=== PATIENT | female | born 1935 | race Caucasian/White ===

== ENCOUNTER 2016-11-08 02:54 | Observation (INO) ==
--- NOTE | 2016-11-08 04:13 | Emergency Department Report ---
General Adult HPI - General Chief complaint: Shortness of Breath/Dyspnea Stated complaint: diff breathing Time Seen by Provider: 11/08/16 03:26 Source: patient, family, EMS Mode of arrival: EMS Limitations: no limitations - History of Present Illness HPI narrative: 81-year-old female presents to emergency department with a chief complaint of dyspnea. Patient noted onset of dyspnea at approximately 8:00 the evening before. Symptoms have been persistent in nature since onset. Patient denies any pain or discomfort other than a typical moderate dull generalized headache without radiation. No other complaints or associated symptoms. She does not note any exacerbating or remitting factors. She was at home when her symptoms began. Symptoms have been persistent in nature since onset. - Related Data Home Medications Medication Instructions Recorded Confirmed Atenolol 100 mg PO DAILY #0 02/03/15 11/08/16 Cholecalciferol (Vitamin D3) 2,000 unit PO DAILY #0 02/03/15 (Vitamin D3) Gabapentin 300 mg PO TID #0 02/03/15 11/08/16 Melatonin/Pyridoxine [Melatonin 5 5 mg PO HS #0 02/03/15 mg Tablet] Aspirin [Dom Chewable Aspirin] 81 mg PO DAILY #0 11/17/15 11/08/16 Hydrocodone/Acetaminophen 1 tab PO Q6H PRN #0 11/17/15 11/08/16 [Hydrocodon-Acetaminophn 10-325] Lubiprostone [Amitiza] 24 mcg PO BID #0 11/17/15 Mirabegron [Myrbetriq] 25 mg PO DAILY #0 11/17/15 11/08/16 Previous Rx's Medication Instructions Recorded Minocycline HCl [Minocin] 100 mg PO BID 7 Days 11/19/15 hydroCHLOROthiazide 1 cap PO WB 30 Days 11/19/15 [Hydrochlorothiazide] Allergies Allergy/AdvReac Type Severity Reaction Status Date / Time codeine Allergy Unknown Verified 11/08/16 05:49 Review of Systems Constitutional: Denies: fever, chills Eyes: Denies: eye pain, vision change ENT: Denies: ear pain, throat pain Cardiovascular: Denies: chest pain, dyspnea on exertion Respiratory: Reports: dyspnea. Denies: cough Gastrointestinal: Denies: abdominal pain, nausea, vomiting, diarrhea Genitourinary: Denies: urgency, dysuria Musculoskeletal: Denies: back pain, arthralgia Integumentary: Denies: erythema, rash Neurological: Reports: headache (typical). 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 - Social History Smoking status: Never smoker Substance use type: does not use Alcohol intake frequency: does not drink Physical Exam - Limitations Limitations: no limitations - General General appearance: alert, in no apparent distress - Normal Exams: Head:: Normocephalic without trauma Eyes:: Pupils are PERRLA w/ EOMI, No scleral icterus, irritation, or foreign bodies noted ENMT:: No facial trauma, nasal exudates, pharyngeal erythema, or exudates are noted Dental: No fractured, loose, or missing teeth noted Neck:: Full range of motion Chest/Respirations:: Clear all kim, with good airflow, and symmetry bilaterally Cardiovascular:: Regular rate and rhythm, without murmur or gallop, Pulses 2+ all extremities, capillary refill, <2 seconds all extremities Abdomen:: Bowel sounds positive, soft, non-tender, non-distended, no hepatosplenomegaly, masses or bruits noted Lymphatic:: No lymphadenopathy, or lymphedema noted Musculoskeletal:: No tenderness, or deformity noted, good range of motion, all extremities Integumentary:: No rashes, hives, or bruising noted, hair and nails, without abnormality Course Vital Signs Temperature 98.5 F 11/08/16 02:54 Pulse Rate 64 11/08/16 02:54 Respiratory Rate 18 11/08/16 02:54 Blood Pressure 210/95 H 11/08/16 02:54 Pulse Oximetry 92 11/08/16 02:54 Temperature 96.8 F 11/08/16 16:00 Pulse Rate 73 11/08/16 16:00 Respiratory Rate 17 11/08/16 16:00 Blood Pressure 131/67 11/08/16 16:00 Pulse Oximetry 94 11/08/16 16:00 Medical Decision Making - MDM Narrative Medical decision making narrative: Labs / Imaging were discussed in detail with the patient and questions are answered. Patient is in agreement with the current plan of management. She is given analgesic pain medication with improvement of symptoms in the emergency Department. Patient is discussed with Joanne Marie who is Dr. Mary's nurse practitioner who recommends admission to their service. She is given aspirin 324 milligrams by mouth times one. She is given Lasix 40 mg IV times one. She is admitted to the service of Dr. Mary in improved condition. No further orders from accepting physician who is in agreement with the current plan of management. - Differential Diagnosis DHF, COPD, pneumonia, UTI - Lab Data Result diagrams: 11/08/16 03:10 11/08/16 03:10 Lab Results 11/08/16 11/08/16 11/08/16 Range/Units 03:10 03:10 03:10 WBC 7.0 (4.5-11.0) T/MM3 RBC 3.97 L (4.00-5.20) M/MM3 Hgb 12.1 (12-16) GM/DL Hct 37.4 (36-46) % MCV 94.2 (80-100) UM3 MCH 30.5 (26-34) UUG MCHC 32.4 (31-37) GM/DL RDW Std Deviation 43.7 (36.9-50.2) FL Plt Count 201 (130-400) T/MM3 MPV 11.6 (9.4-12.4) UM3 Immature Gran % (Auto) 0.4 (0.0-0.5) % Neut % (Auto) 69.1 H (33-66) % Lymph % (Auto) 22.7 L (23-45) % [place] % (Auto) 6.4 (0-9.0) % Eos % (Auto) 1.1 (0-4) % Baso % (Auto) 0.3 (0-2) % Neut # 4.8 (1.8-7.7) T/MM3 Lymph # 1.6 (1-4.8) T/MM3 [place] # 0.5 (0-0.8) T/MM3 Eos # 0.1 (0-0.5) T/MM3 Baso # 0.0 (0-0.2) T/MM3 Abs Immat Gran (auto) 0.03 (0.00-0.03) T/MM3 Turbidity < 20 (0-20) Sodium 145 H (134-144) MEQ/L Potassium 4.8 (3.6-5) MEQ/L Chloride 107 (98-107) MEQ/L Carbon Dioxide 27 (22-30) MEQ/L Anion Gap 11 (5-15) MEQ/L BUN 20.0 H (7-17) MG/DL Creatinine 1.1 (0.7-1.2) MG/DL GFR Calculation 47 BUN/Creatinine Ratio 18 (6-26) RATIO Glucose 103 (65-110) MG/DL Calculated Osmolality 282 H (261-280) MOSM/KG Calcium 9.3 (8.4-10.2) MG/DL Total Bilirubin 0.80 (0.20-1.30) MG/DL Icterus Index < 2 (0-7) AST 24 (14-36) U/L ALT 22 (9-52) U/L Alkaline Phosphatase 68 (38-126) U/L Troponin I < 0.012 (0-0.12) ng/ml B-Natriuretic Peptide (0-175) pg/mL Total Protein 7.3 (6.3-8.2) G/DL Albumin 4.4 (3.5-5.0) G/DL Globulin 2.9 (2.4-3.6) G/DL Albumin/Globulin Ratio 1.5 (1.1-2.2) RATIO Lipase (23-300) U/L Specimen Hemolysis < 15 (0-25) Ur Collection Type Urine, clean catch Urine Color Yellow (YELLOW) Urine Clarity Clear Urine pH 5.5 (5.0-8.0) Ur Specific [place] <=1.005 L (1.015-1.025) Urine Protein Negative (NEGATIVE) Urine Glucose (UA) Negative (NEGATIVE) Urine Ketones Negative (NEGATIVE) Urine Occult Blood Negative (NEGATIVE) Urine Nitrate Negative (NEGATIVE) Urine Bilirubin Negative (NEGATIVE) Urine Urobilinogen 0.2 (NORMAL) EU/DL Ur Leukocyte Esterase Negative (NEGATIVE) Urinalysis Comment Microscopic not ind. 11/08/16 Range/Units 03:10 WBC (4.5-11.0) T/MM3 RBC (4.00-5.20) M/MM3 Hgb (12-16) GM/DL Hct (36-46) % MCV (80-100) UM3 MCH (26-34) UUG MCHC (31-37) GM/DL RDW Std Deviation (36.9-50.2) FL Plt Count (130-400) T/MM3 MPV (9.4-12.4) UM3 Immature Gran % (Auto) (0.0-0.5) % Neut % (Auto) (33-66) % Lymph % (Auto) (23-45) % [place] % (Auto) (0-9.0) % Eos % (Auto) (0-4) % Baso % (Auto) (0-2) % Neut # (1.8-7.7) T/MM3 Lymph # (1-4.8) T/MM3 [place] # (0-0.8) T/MM3 Eos # (0-0.5) T/MM3 Baso # (0-0.2) T/MM3 Abs Immat Gran (auto) (0.00-0.03) T/MM3 Turbidity (0-20) Sodium (134-144) MEQ/L Potassium (3.6-5) MEQ/L Chloride (98-107) MEQ/L Carbon Dioxide (22-30) MEQ/L Anion Gap (5-15) MEQ/L BUN (7-17) MG/DL Creatinine (0.7-1.2) MG/DL GFR Calculation BUN/Creatinine Ratio (6-26) RATIO Glucose (65-110) MG/DL Calculated Osmolality (261-280) MOSM/KG Calcium (8.4-10.2) MG/DL Total Bilirubin (0.20-1.30) MG/DL Icterus Index (0-7) AST (14-36) U/L ALT (9-52) U/L Alkaline Phosphatase (38-126) U/L Troponin I (0-0.12) ng/ml B-Natriuretic Peptide 2750 H (0-175) pg/mL Total Protein (6.3-8.2) G/DL Albumin (3.5-5.0) G/DL Globulin (2.4-3.6) G/DL Albumin/Globulin Ratio (1.1-2.2) RATIO Lipase 88 (23-300) U/L Specimen Hemolysis (0-25) Ur Collection Type Urine Color (YELLOW) Urine Clarity Urine pH (5.0-8.0) Ur Specific [place] (1.015-1.025) Urine Protein (NEGATIVE) Urine Glucose (UA) (NEGATIVE) Urine Ketones (NEGATIVE) Urine Occult Blood (NEGATIVE) Urine Nitrate (NEGATIVE) Urine Bilirubin (NEGATIVE) Urine Urobilinogen (NORMAL) EU/DL Ur Leukocyte Esterase (NEGATIVE) Urinalysis Comment - Radiology Data CT head: Negative. Chest x-ray: Mild pulmonary edema. Otherwise negative. - EKG Data EKG #1 EKG results narrative: Sinus rhythm. 63 beats per minute. No STEMI. Disposition Disposition: To [facility] Condition: Stable Time of Disposition: 06:00 (Admit. Dr. Mary. ) - Seen By: physician
[2016-11-08] MEDS ORDERED: HYDROCODONE/APAP 5mg/325mg TABLET PO ONE (05:15)
[2016-11-08] MEDS ORDERED: ASPIRIN 81 MG CHEWABLE TABLET PO ONE (06:20)
[2016-11-08] MEDS ORDERED: FUROSEMIDE 40 MG/4 ML INJECTION IVP ONE (06:20)
[2016-11-08] MEDS: SALINE FLUSH 10ml SYRINGE IVF PRN ×3 (06:34→23:32)
--- NOTE | 2016-11-08 07:55 | CT Scan Report ---
Indication: HOANG PROCEDURE: CT head/brain wo con: Encounter: Initial Comparison: November 17, 2015 Technique: Axial CT images through the head were performed without contrast. Iterative Reconstruction dose reducing technique was utilized. FINDINGS: Mild generalized atrophy. The ventricles are of normal size, shape, and contour for the patient's age. There are scattered areas of low attenuation in the white matter which most likely represent changes from chronic microvascular ischemia. The brainstem, cerebellum, and cerebral hemispheres otherwise have a normal morphology and CT attenuation. There is no evidence of midline displacement. No hemorrhage, signs of acute territorial stroke, mass effect, mass lesions, or edema is evident. The visualized portions of the skull base, midface, and calvarium demonstrate no abnormality. The paranasal sinuses are well aerated and free of significant disease. The tympanic and mastoid cavities appear normal. IMPRESSION: No acute intracranial abnormality or hemorrhage. There is a preliminary report by [facility]. .
--- NOTE | 2016-11-08 07:56 | XRay Report ---
Indication: sob PROCEDURE: XR chest 1V: Encounter: Initial Comparison: November 19, 2015 Findings: The lungs are stable in appearance without new focal airspace consolidation. There is no pleural effusion or pneumothorax. The heart size, pulmonary vascularity and mediastinal contours are unchanged. Left pacemaker. Cervical spine hardware. IMPRESSION: Stable appearance of the chest without acute cardiopulmonary disease. .
--- NOTE | 2016-11-08 11:58 | History & Physical Report ---
<SimFunmilayo A - Last Filed: 11/08/16 13:15> History of Present Illness Date: 11/08/16 Chief complaint: Chest pain, shortness of breath HPI: Doreen Gregorio is a pleasant 81-year-old female who complains of chest pain and shortness of breath. She reports that last night, 11/07/16, around 8pm she laid down to go to bed and started to have central, substernal chest pain and shortness of breath. She denies any prior symptoms and states that she felt fine all day and evening. She states that her chest pain radiated to her mid back and up into her head causing a right sided headache. She admits to having similar pain before and reportedly underwent cardiac evaluation and pacemaker interrogation which she states was normal. She has had similar pain which occurs when eating meat and drinking cold drinks, feeling like something is "stuck" in her chest. She admitted to feeling very anxious and clammy with her chest pain and shortness of breath but denies any recent illnesses, fevers, chills, nausea or vomiting. Occasionally when standing up from laying down or sitting position, she will feel lightheaded and admits to recently falling after standing up from the toilet about 3 weeks ago, resulting in a bruise on her right cheek. She also states that she did have a brief 2-3 second loss of her vision while signing papers which returned spontaneously. She denies any facial droop, slurring of words, confusion or weakness. Additional complaint includes dysuria and polyuria with frequency and urgency for the past few days. She has a history of frequent UTIs. Her granddaughter persuaded her to come to the ED around 1am for evaluation. Upon arrival to the ED, vital signs revealed hypertension 177/79, heart rate 63, respiratory rate 20, 92% on room air and temp 98.3. In light of her symptoms, labs were obtained. CBC was unremarkable with WBC 7.0, hemoglobin 12.1, platelets 201. BMP revealed hypernatremia with sodium 145, potassium 4.8, BUN 20, SCr 1.1 and glucose 103. Troponin was negative at <0.012. Lipase, AST and ALT were within normal ranges. BNP was 2750. UA was negative. CT head was obtained in light of her headache and brief loss of vision and showed no acute intracranial abnormality or hemorrhages. CXR revealed no acute cardiopulmonary abnormality. While in the ED she received Lasix 40mg IV, ASA and norco. Due to her chest pain and shortness of breath, she was subsequently admitted to Dr. Mary. Admission was later changed to Dr. Singh and the hospitalist team. Her length of stay is not expected to exceed more than 2 over nights. She has a long history of hypertension. She denies a history of diabetes. On exam, she is seen while finishing her lunch and complains of chest pain and shortness of breath. She is in no apparent distress and is breathing easily on room air. She points to her mid-lower sternal region and epigastric region with regard to location of pain. Cardiac exam reveals regular rate and rhythm and lungs reveal bibasilar crackles without wheezing or crackles. Abdomen is obese, soft, nontender with active bowel sounds. By history, patient reports left sided abdominal hernia which is not noted on exam. No edema to lower extremities and 2+ pedal pulses bilaterally. Review of Systems - Constitutional Constitutional: Present: headache(s). Absent: chills, fever(s), night sweats, weakness - EENMT Eyes: Present: diplopia (corrected with glasses), loss of vision (brief 2-3 seconds prior to arrival), requires corrective lenses. Absent: change in vision , pain, photophobia Balance: Absent: vertigo, falling to one side Nose: Absent: nosebleeds, allergies Mouth/Throat: Absent: sore throat, changes in swallowing, painful swallowing - Cardiovascular Cardiovascular: Present: chest pain, dyspnea on exertion, orthopnea. Absent: palpitations, syncope, edema, cyanosis Vascular: Absent: pallor of an extermity, pedal edema, unilateral swelling - Respiratory Respiratory: Present: dyspnea, dyspnea on exertion. Absent: cough, hemoptysis, wheezing, pain on inspiration, chest congestion, excessive phlegm production - Gastrointestinal Gastrointestinal: Present: constipation, dyspepsia. Absent: abdominal pain, change in bowel habits, change in stool character, coffee ground emesis, diarrhea, hematemesis, hematochezia, nausea, vomiting - Genitourinary Genitourinary: Present: dysuria, urinary frequency, urinary urgency. Absent: flank pain, hematuria - Musculoskeletal Musculoskeletal: Present: arthralgias (chronic), back pain (chronic), neck pain (chronic). Absent: deformity, joint swelling, muscle weakness - Integumentary/Breasts Integumentary: Absent: erythema, rash, wounds, jaundice - Neurological Neurological: Present: headache(s). Absent: abnormal speech, convulsions, dizziness, lack of coordination, memory loss, weakness - Psychiatric Psychiatric: Present: anxiety - Endocrine Endocrine: Present: polyuria. Absent: palpitations PFSH Medical History Updates: 1. Hypertension. 2. Hypercholesterolemia. 3. Chronic constipation. 4. History of GERD. 5. Renal insufficiency, chronic, stage III, GFR 47. 6. Recurrent UTI. 7. History of TIA. 8. Rheumatoid arthritis with chronic neck and back pain. 9. Morbid obesity, BMI 43. Surgical History: 1. Cataract extractions. 2. section x 4. 3. Hysterectomy. 4. Bilateral TKA. 5. Cervical neck fusion. 6. Excess skin removal from arms, legs and back. Family History Updates: Mother - , hypertension, diabetes. Father - , 60's, MVA. Brother - , diabetes, cirrhosis, hypertension. Brother - , CAD, [place]. Sister - , lung and liver cancer, hypertension. Son - , cirrhosis, Hep C. Daughter - alive, hypertension. Son - alive, healthy. - Social History Smoking status: Never smoker Substance use type: does not use Alcohol intake frequency: does not drink Housing: house (home health) Household members: none service: No Current occupational status: retired Does patient use chewing tobacco?: No Medications Home Medications Medication Instructions Recorded Confirmed Type Atenolol 100 mg PO DAILY #0 02/03/15 11/08/16 History Cholecalciferol (Vitamin D3) 2,000 unit PO DAILY #0 02/03/15 History (Vitamin D3) Gabapentin 300 mg PO TID #0 02/03/15 11/08/16 History Melatonin/Pyridoxine [Melatonin 5 5 mg PO HS #0 02/03/15 History mg Tablet] Aspirin [Dom Chewable Aspirin] 81 mg PO DAILY #0 11/17/15 11/08/16 History Hydrocodone/Acetaminophen 1 tab PO Q6H PRN #0 11/17/15 11/08/16 History [Hydrocodon-Acetaminophn 10-325] Lubiprostone [Amitiza] 24 mcg PO BID #0 11/17/15 History Mirabegron [Myrbetriq] 25 mg PO DAILY #0 11/17/15 11/08/16 History Allergies Allergy/AdvReac Type Severity Reaction Status Date / Time codeine Allergy Unknown Verified 11/08/16 05:49 Exam Vital Signs: Temp Pulse Resp BP Pulse Ox 97.2 F 60 16 165/73 H 93 11/08/16 07:00 11/08/16 07:00 11/08/16 07:00 11/08/16 07:00 11/08/16 07:00 Telemetry Rhythm: Sinus Rhythm Height: 4 ft 10 in Weight: 94.3 kg Body Mass Index: 43.4 - Constitutional Present: no acute distress, well nourished, well developed, morbidly obese, cooperative - Routine HEENT Exam Head: Present: normocephalic, hematoma (right cheek - old) Eye: Present: PERRL. Absent: conjunctival icterus, scleral injection, periorbital swelling ENT: Present: mucous membranes moist - Routine Neck Exam Present: supple, full ROM, tenderness (chronic posterior cervical), swelling, trachea midline - Routine Chest/Breast/Axilla Exam Chest wall: Absent: tenderness - Routine Respiratory Exam Present: decreased breath sounds. Absent: accessory muscle use - Detailed Respiratory Exam Present: rales. Absent: wheezes - Routine Cardiovascular Exam Present: RRR, S1, S2 - Routine Abdominal Exam Present: soft, normoactive bowel sounds, non distended, non tender. Absent: guarding - Routine Extremities Exam Present: no edema, non tender, full ROM, pulses intact (2+ bilateral pedal), normal capillary refill. Absent: cyanosis, calf tenderness - Routine Back/Spine/Pelvis Exam Back/Spine: Absent: CVA tenderness, erythema, warmth - Routine Skin Exam Present: intact, dry, warm, ecchymosis (right cheek and arm). Absent: cyanosis , erythema, lesions, jaundice - Routine Neurological Exam Present: alert, oriented X3, CN II-XII intact, moving all extremities, hearing grossly intact, normal speech. Absent: altered mental status - Routine Psychiatric Exam Present: normal affect, normal thought process, cooperative, anxious Results - Labs CBC & Chem 7: 11/08/16 03:10 11/08/16 03:10 Assessment and Plan (1) Chest pain of uncertain etiology Current visit: Yes Status: Acute (2) Hypertension Current visit: Yes Status: Chronic (3) Hypercholesterolemia Current visit: Yes Status: Chronic (4) GERD (gastroesophageal reflux disease) Current visit: Yes Status: Chronic (5) Chronic renal disease, stage 3, moderately decreased glomerular filtration rate (GFR) between 30-59 mL/min/1.73 square meter Current visit: Yes Status: Chronic (6) Rheumatoid arthritis Current visit: Yes Status: Chronic (7) Chronic pain Current visit: Yes Status: Chronic (8) Chronic constipation Current visit: Yes Status: Chronic (9) Morbid obesity with BMI of 40.0-44.9, adult Current visit: Yes Status: Chronic DVT Prophylaxis: SCD's GI Prophylaxis: Protonix Resuscitation Status: Full Code Assessment and Plan: . Chest pain of unknown etiology with shortness of breath: * Admit to observation status under the care of Dr. Singh. * Obtain serial troponins and monitor closely on telemetry. Troponin on admission was negative at <0.012. * Chest pain does not appear to be cardiac in nature. Patient reports pain is worse following eating, cold liquids and meat. May consider surgical consult for endoscopy evaluation for possible esophageal strictures and other sources of pain. * Patient given Lasix 40mg IV in ED. No edema on exam. Monitor daily weights and signs of fluid over load closely. BNP on admission was 2750. * CXR on admission showed no acute cardiopulmonary insufficiency. Encourage IS for pulmonary toileting. * Ativan as needed for anxiety which is potentially contributing to chest pain and shortness of breath. * Recheck BMP and CBC in AM to monitor blood counts, electrolytes and renal function. * Arteritis secondary to patient's RA should be considered in light of patient' s complaint of pain. CXR showed no acute cardiopulmonary abnormalities. . Hypernatremia, present on admission: * Sodium 145 on admission. Will recheck with repeat BMP in AM to monitor electrolytes and renal function . Hypertension, chronic: * Blood pressure elevated on admission. Continue to monitor closely. * Continue home medications including atenolol 100mg daily. Patient required Cozaar on previous admission to control blood pressure. . Hypercholesterolemia, chronic. * Encourage close monitoring as outpatient. No home medication taken. * Family history positive for CAD. May consider initiation of statin therapy. . GERD, chronic. * Initiate Prilosec 20mg daily for GERD and GI protection. * LFT and lipase within normal limits upon admission. . Chronic pain secondary to Rheumatoid arthritis. * Continue home medications including norco and gabapentin. * Patient denied need for additional pain control at time of admission. . Chronic constipation. * Most likely secondary to chronic opioid use. * Continue home amitiza for bowel motivation. . Renal insufficiency, stage III, GFR 47. * Monitor through evaluation of renal function and labs. Upon discharge, patient's care will be returned to her PCP. Sepsis Assessment - Evaluation Sepsis screening result: No Definite Risk - Focused Exam Vital Signs Temp Pulse Resp BP Pulse Ox 11/08/16 07:00 97.2 F 60 16 165/73 H 93 Hospital Course Summary Disclaimer: The visit summary below is not to be considered part of the above Progress Note. Hospital Course: 11/08/16 13:53 . Chest pain of unknown etiology with shortness of breath: * Admit to observation status under the care of Dr. Singh. * Obtain serial troponins and monitor closely on telemetry. Troponin on admission was negative at <0.012. * Chest pain does not appear to be cardiac in nature. Patient reports pain is worse following eating, cold liquids and meat. May consider surgical consult for endoscopy evaluation for possible esophageal strictures and other sources of pain. * Patient given Lasix 40mg IV in ED. No edema on exam. Monitor daily weights and signs of fluid over load closely. BNP on admission was 2750. * CXR on admission showed no acute cardiopulmonary insufficiency. Encourage IS for pulmonary toileting. * Ativan as needed for anxiety which is potentially contributing to chest pain and shortness of breath. * Recheck BMP and CBC in AM to monitor blood counts, electrolytes and renal function. * Arteritis secondary to patient's RA should be considered in light of patient' s complaint of pain. CXR showed no acute cardiopulmonary abnormalities. . Hypernatremia, present on admission: * Sodium 145 on admission. Will recheck with repeat BMP in AM to monitor electrolytes and renal function . Hypertension, chronic: * Blood pressure elevated on admission. Continue to monitor closely. * Continue home medications including atenolol 100mg daily. Patient required Cozaar on previous admission to control blood pressure. . Hypercholesterolemia, chronic. * Encourage close monitoring as outpatient. No home medication taken. * Family history positive for CAD. May consider initiation of statin therapy. . GERD, chronic. * Initiate Prilosec 20mg daily for GERD and GI protection. * LFT and lipase within normal limits upon admission. . Chronic pain secondary to Rheumatoid arthritis. * Continue home medications including norco and gabapentin. * Patient denied need for additional pain control at time of admission. . Chronic constipation. * Most likely secondary to chronic opioid use. * Continue home amitiza for bowel motivation. . Renal insufficiency, stage III, GFR 47. * Monitor through evaluation of renal function and labs. Upon discharge, patient's care will be returned to her PCP. <Hilda Singh - Last Filed: 11/08/16 19:21> History of Present Illness Date: 11/08/16 [facility] Patient Stated Medical History Transient Ischemic Attacks ( Yes TIA) Cataracts Yes Angina Yes Hypertension Yes Valvular Heart Disease Yes: MILD REGURG Gastroesophageal Reflux Yes Disease Other GI Yes: CHRONIC CONSTIPATION, MASS IN LUQ Hx Renal Disease Yes Hx Urinary Tract Infection Yes Osteoarthritis Yes: RA Other Musculoskeletal MULTIPLE FALLS W/SYNCOPE BEFORE PACEMAKER Blood Transfusions Yes Depression Yes Exam Vital Signs: Temp Pulse Resp BP Pulse Ox 96.8 F 73 17 131/67 94 11/08/16 16:00 11/08/16 16:00 11/08/16 16:00 11/08/16 16:00 11/08/16 16:00 Height: 1.47 m Weight: 93.7 kg Results - Labs CBC & Chem 7: 11/08/16 03:10 11/08/16 03:10 Assessment and Plan (1) Hypertension Current visit: Yes Status: Chronic (2) Hypercholesterolemia Current visit: Yes Status: Chronic (3) Chronic constipation Current visit: Yes Status: Chronic (4) GERD (gastroesophageal reflux disease) Current visit: Yes Status: Chronic (5) Chronic renal disease, stage 3, moderately decreased glomerular filtration rate (GFR) between 30-59 mL/min/1.73 square meter Current visit: Yes Status: Chronic (6) Rheumatoid arthritis Current visit: Yes Status: Chronic (7) Chronic pain Current visit: Yes Status: Chronic (8) Chest pain of uncertain etiology Current visit: Yes Status: Acute (9) Morbid obesity with BMI of 40.0-44.9, adult Current visit: Yes Status: Chronic (10) Dysphagia Current visit: Yes Status: Acute 11/08/16 18:57 History esophageal dilatation-2002 (11) Wide-complex tachycardia Current visit: Yes Status: Acute Assessment and Plan: I have independently evaluated and examined this patient. I reviewed the chart, the patient's history, and the PA's documented findings as above. We discussed and formulated the assessment and plan as above with additions as below: Mrs. Gregorio is an 81-year-old female with multiple chronic medical problems. 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 She is currently followed by Dr. Real in the [facility]. She was hospitalized overnight with chest pain and dyspnea after she developed chest pain after laying down yesterday evening around 8 PM. This was followed by onset of dyspnea when she began to get anxious and panicky. She has a history of esophageal stricture requiring dilatation about 15 years ago when she lived in [place] and said the symptoms she is having with chest pain or similar symptoms she experienced at that time and that she's having trouble swallowing especially with meats and vegetables but haven't been cooked well. It feels like food catches and sometimes she has to vomit when she develops pain with swallowing. She denies lower extremity edema. BNP was elevated in the emergency room and she was admitted for further assessment. On examination the patient is somewhat anxious but very cooperative and talkative. Respirations are nonlabored and breath sounds clear with good airflow. Cardiac rhythm is regular and without gallop. Abdomen is obese but soft, there is mild tenderness in the epigastrium and left upper quadrant. There is no lower extremity edema. X-rays been reviewed by myself-heart is enlarged lung kim are clear. EKGs also been reviewed by myself demonstrating sinus rhythm with wide complex complex, LAD, LAFB, poor R-wave progression, but no acute abnormalities. Labs notable only for elevated BNP without clinical correlate. Late this afternoon patient had a short run of wide complex tachycardia at which time she had palpitations when revisited but no chest pain. She reports that the symptoms lasted only briefly. By history I suspect presenting chest pain is largely esophageal in origin and may represent esophageal spasm or stricture. She describes some reflux and omeprazole will be increased to twice a day dosing. Dr. Real updated on symptoms and will coordinate outpatient evaluation of esophagus if symptoms are ongoing. Pacemaker to be interrogated. Cardiology consult if indicated based on interrogation results. Third troponin pending, magnesium added to labs given ectopy looked noted late this afternoon. Sepsis Assessment - Focused Exam Vital Signs Temp Pulse Resp BP Pulse Ox 11/08/16 16:00 96.8 F 73 17 131/67 94 11/08/16 15:51 22 98 11/08/16 07:00 97.2 F 60 16 165/73 H 93 Hospital Course Summary Disclaimer: The visit summary below is not to be considered part of the above Progress Note.
[2016-11-08] MEDS ORDERED: ONDANSETRON 4 MG/2 ML INJECTION IVP PRN (12:06)
[2016-11-08] MEDS ORDERED: OMEPRAZOLE 20 MG CAPSULE PO SCH (12:17)
[2016-11-08] MEDS: HYDROCODONE/APAP 10 MG/325 MG TABLET PO PRN ×2 (12:48→20:07)
[2016-11-08] MEDS: ATENOLOL 100 MG TABLET PO SCH (12:48)
[2016-11-08] MEDS: GABAPENTIN 300 MG CAPSULE PO SCH ×2 (14:22→21:02)
[2016-11-08] MEDS: LUBIPROSTONE 24 MCG CAPSULE PO SCH (21:02)
[2016-11-08] MEDS ORDERED: MELATONIN 5 MG TABLET PO SCH (22:00)
[2016-11-08] MEDS: MAGNESIUM SULFATE 1gm PREMIX 1 GM/100 ML BAG IV SCH ×2 (22:18→23:31)
[2016-11-08] MEDS: MINOCYCLINE 100 MG CAPSULE PO SCH (22:36)
[2016-11-08] MEDS ORDERED: NS FLUSH BAG 500ml IV PRN ×2 (22:59→23:37)
[2016-11-09] MEDS: MAGNESIUM SULFATE 1gm PREMIX 1 GM/100 ML BAG IV SCH ×2 (00:36→01:48)
[2016-11-09] MEDS: HYDROCODONE/APAP 10 MG/325 MG TABLET PO PRN ×2 (02:09→09:36)
[2016-11-09] MEDS ORDERED: OMEPRAZOLE 20 MG CAPSULE PO SCH (06:30)
[2016-11-09] MEDS ORDERED: MIRABEGRON 25mg TABLET PO SCH (09:00)
[2016-11-09] MEDS ORDERED: ASPIRIN 81 MG CHEWABLE TABLET PO SCH (09:00)
[2016-11-09] MEDS ORDERED: DULOXETINE 30 MG CAPSULE PO SCH (09:30)
[2016-11-09] MEDS: LUBIPROSTONE 24 MCG CAPSULE PO SCH (09:34)
[2016-11-09] MEDS: GABAPENTIN 300 MG CAPSULE PO SCH (09:36)
[2016-11-09] MEDS: MINOCYCLINE 100 MG CAPSULE PO SCH (09:36)
[2016-11-09] MEDS: ATENOLOL 100 MG TABLET PO SCH (09:36)
[2016-11-09] MEDS ORDERED: ACETAMINOPHEN 500 MG TABLET PO PRN (10:17)
[2016-11-09] MEDS ORDERED: HYDROCODONE/APAP 10 MG/325 MG TABLET PO PRN (10:18)
[2016-11-09] MEDS ORDERED: GABAPENTIN 300 MG CAPSULE PO SCH ×2 (13:00→22:00)
--- NOTE | 2016-11-09 15:21 | Discharge Summary ---
Discharge Plan - Med Rec/Dispo Referrals/Follow Up: Juan Francisco Real MD [Family Provider] - 1 Week [facility] Instructions: Gastroesophageal Reflux Disease (GEN), Esophageal Stricture (GEN) Prescriptions: New Cholecalciferol [Vitamin D-3] 1,000 unit PO DAILY Duloxetine [Cymbalta] 30 mg PO DAILY cap Gabapentin [Neurontin] 300 mg PO 0900,1300 cap Hydrocodone/APAP 10/325 [[place] 10/325] 1 tab PO 5XD PRN PRN Reason: P Lidocaine Patch Removal [Lidoderm Patch Removal] 1 removal TOP 2100 patch Magnesium Oxide [Magox] 800 mg PO DAILY #60 PEG 3350 17gm PACKET [Miralax] 0.5 packet PO DAILY #30 packet Simvastatin [Zocor] 10 mg PO HS Trospium [Sanctura] 20 mg PO BID #60 tablet Acetaminophen [Tylenol] 500 - 1,000 mg PO BID PRN PRN Reason: Discomfort Gabapentin [Neurontin] 600 mg PO HS cap Lidocaine 5% Patch [Lidoderm] 1 patch TOP DAILY patch Omeprazole [Prilosec] 20 mg PO ACBID #60 cap Propylene Glycol/Peg 400 [Systane 0.3-0.4% Eye Drops] 15 ml OP BID #2 drops Continue Atenolol 100 mg PO DAILY #0 Lubiprostone [Amitiza] 24 mcg PO BID #0 Aspirin [Dom Chewable Aspirin] 81 mg PO DAILY #0 Discontinued Mirabegron [Myrbetriq] 25 mg PO DAILY #0 Melatonin/Pyridoxine [Melatonin 5 mg Tablet] 5 mg PO HS #0 Cholecalciferol (Vitamin D3) (Vitamin D3) 2,000 unit PO DAILY #0 Gabapentin 300 mg PO TID #0 hydroCHLOROthiazide [Hydrochlorothiazide] 1 cap PO WB 30 Days No Action Hydrocodone/Acetaminophen [Hydrocodon-Acetaminophn 10-325] 1 tab PO Q6H PRN # 0 PRN Reason: PAIN - Disposition 01 Discharged Home, Self-Care
--- NOTE | 2016-11-09 15:45 | Echocardiogram ---
DATE OF PROCEDURE November 08, 2016 This is a two-dimensional echo with spectral Doppler, color-flow and M-mode. It was obtained in a patient with shortness of breath. This is a technically difficult study. Left atrium is dilated. Left ventricle end-diastolic dimension is increased. Left ventricular wall thickness at the upper limits of normal. LV systolic function is normal with ejection fraction of 55%. Right atrium is normal. Right ventricle is normal. Aortic root dimension is normal. Pacemaker is present in right heart. Mitral annulus is calcified. Mitral valve leaflets are normal with mild mitral regurgitation. Aortic valve appears to be normal, however, it was not visualized well. Tricuspid valve shows mild tricuspid regurgitation with estimated pulmonary artery systolic pressure of 33. Pulmonary valve shows mild pulmonary insufficiency. There is no pericardial effusion. IMPRESSION 1. Technically difficult study. 2. Normal LV systolic function with ejection fraction of 55%. 3. Left atrial dilation. 4. Left ventricular dilation. 5. Mitral annulus calcification with mild mitral regurgitation. 6. Mild tricuspid regurgitation with estimated pulmonary artery systolic pressure of 33. 7. Mild pulmonary insufficiency. 8. Pacemaker leads present in right heart. MTDD
--- NOTE | 2016-11-09 20:47 | Discharge Summary ---
Discharge Information Date of admission: 11/08/16 06:58 Anticipated date of discharge: 11/09/16 Attending Physician: Hilda Singh MD Primary care physician: Juan Francisco Reynolds MD Consults: - Discharge Diagnosis (1) Chest pain of uncertain etiology Status: Acute (2) Dysphagia Qualifiers: Dysphagia type: esophageal phase Qualified Code(s): R13.14 - Dysphagia, pharyngoesophageal phase Status: Acute (3) GERD (gastroesophageal reflux disease) Qualifiers: Esophagitis presence: esophagitis presence not specified Qualified Code(s) : K21.9 - Gastro-esophageal reflux disease without esophagitis Status: Chronic (4) Hypertension Qualifiers: Hypertension type: essential hypertension Qualified Code(s): I10 - Essential (primary) hypertension Status: Chronic (5) Hypercholesterolemia Status: Chronic (6) Chronic constipation Status: Chronic (7) Chronic renal disease, stage 3, moderately decreased glomerular filtration rate (GFR) between 30-59 mL/min/1.73 square meter Status: Chronic (8) Morbid obesity with BMI of 40.0-44.9, adult Status: Chronic (9) Wide-complex tachycardia Status: Acute (10) Hypomagnesemia Status: Acute - Procedures Procedures: Echocardiogram on 11/08: This is a technically difficult study. Left atrium is dilated. Left ventricle end-diastolic dimension is increased. Left ventricular wall thickness at the upper limits of normal. LV systolic function is normal with ejection fraction of 55%. Right atrium is normal. Right ventricle is normal. Aortic root dimension is normal. Pacemaker is present in right heart. Mitral annulus is calcified. Mitral valve leaflets are normal with mild mitral regurgitation. Aortic valve appears to be normal, however, it was not visualized well. Tricuspid valve shows mild tricuspid regurgitation with estimated pulmonary artery systolic pressure of 33. Pulmonary valve shows mild pulmonary insufficiency. There is no pericardial effusion. IMPRESSION 1. Technically difficult study. 2. Normal LV systolic function with ejection fraction of 55%. 3. Left atrial dilation. 4. Left ventricular dilation. 5. Mitral annulus calcification with mild mitral regurgitation. 6. Mild tricuspid regurgitation with estimated pulmonary artery systolic pressure of 33. 7. Mild pulmonary insufficiency. 8. Pacemaker leads present in right heart. - Laboratory Labs: 11/09/16 04:39 11/09/16 04:39 Admission CBC and electrolytes essentially unchanged from above. Liver enzymes unremarkable, BNP 2750, lipase 88. Troponin < 0.012 x3 - Radiology Radiology: Chest x-ray on 11/08 demonstrated: The lungs are stable in appearance without new focal airspace consolidation. There is no pleural effusion or pneumothorax. The heart size, pulmonary vascularity and mediastinal contours are unchanged. Left pacemaker. Cervical spine hardware. IMPRESSION: Stable appearance of the chest without acute cardiopulmonary disease. CT of the head on 11/08: Mild generalized atrophy. The ventricles are of normal size, shape, and contour for the patient's age. There are scattered areas of low attenuation in the white matter which most likely represent changes from chronic microvascular ischemia. No acute intracranial abnormality or hemorrhage. History of Present Illness HPI: Doreen Gregorio is a pleasant 81-year-old female who complains of chest pain and shortness of breath. She reports that last night, 11/07/16, around 8pm she laid down to go to bed and started to have central, substernal chest pain and shortness of breath. She denies any prior symptoms and states that she felt fine all day and evening. She states that her chest pain radiated to her mid back and up into her head causing a right sided headache. She admits to having similar pain before and reportedly underwent cardiac evaluation and pacemaker interrogation which she states was normal. She has had similar pain which occurs when eating meat and drinking cold drinks, feeling like something is "stuck" in her chest. She admitted to feeling very anxious and clammy with her chest pain and shortness of breath but denies any recent illnesses, fevers, chills, nausea or vomiting. Occasionally when standing up from laying down or sitting position, she will feel lightheaded and admits to recently falling after standing up from the toilet about 3 weeks ago, resulting in a bruise on her right cheek. She also states that she did have a brief 2-3 second loss of her vision while signing papers which returned spontaneously. She denies any facial droop, slurring of words, confusion or weakness. Additional complaint includes dysuria and polyuria with frequency and urgency for the past few days. She has a history of frequent UTIs. Her granddaughter persuaded her to come to the ED around 1am for evaluation. Upon arrival to the ED, vital signs revealed hypertension 177/79, heart rate 63, respiratory rate 20, 92% on room air and temp 98.3. In light of her symptoms, labs were obtained. CBC was unremarkable with WBC 7.0, hemoglobin 12.1, platelets 201. BMP revealed hypernatremia with sodium 145, potassium 4.8, BUN 20, SCr 1.1 and glucose 103. Troponin was negative at <0.012. Lipase, AST and ALT were within normal ranges. BNP was 2750. UA was negative. CT head was obtained in light of her headache and brief loss of vision and showed no acute intracranial abnormality or hemorrhages. CXR revealed no acute cardiopulmonary abnormality. While in the ED she received Lasix 40mg IV, ASA and norco. Due to her chest pain and shortness of breath, she was subsequently admitted to Dr. Mary. Admission was later changed to Dr. Singh and the hospitalist team. Her length of stay is not expected to exceed more than 2 over nights. She has a long history of hypertension. She denies a history of diabetes. On exam, she is seen while finishing her lunch and complains of chest pain and shortness of breath. She is in no apparent distress and is breathing easily on room air. She points to her mid-lower sternal region and epigastric region with regard to location of pain. Cardiac exam reveals regular rate and rhythm and lungs reveal bibasilar crackles without wheezing or crackles. Abdomen is obese, soft, nontender with active bowel sounds. By history, patient reports left sided abdominal hernia which is not noted on exam. No edema to lower extremities and 2+ pedal pulses bilaterally. Hospital Course Hospital course: Mrs. Gregorio was hospitalized with atypical chest pain and dyspnea with the latter developing when she became panicky due to chest symptoms. She clearly described pattern suggestive of dysphasia with meats and other solid foods triggering chest pain in addition to past history of esophageal stricture requiring esophageal dilatation twice in the past, most recently in 2002. Cardiac assessment was unremarkable. She was evaluated by speech therapy who concurred that her swallow difficulty was esophageal in origin. This has been reviewed with Dr. Reynolds who will coordinate further outpatient assessment as needed. Because the patient describes some reflux symptomatology omeprazole was increased to twice a day dosing. Late in the day on 11/08 the patient had an episode of wide complex tachycardia with a rate of a little over 110. There were complaint palpitations which lasted briefly but blood pressure was stable. A second episode of wide complex with similar morphology and Rate just under 100 occurred later in the evening. Pacemaker spikes could not be clearly seen on the tracings however when the pacemaker was interrogated on the morning of 11/09 this was felt to represent atrial tachycardia with ventricular pacing. There was no evidence of ventricular tachycardia or pacemaker malfunction. Magnesium was drawn with a wide complex tachycardia and was low at 1.1 prompting IV magnesium replacement with magnesium correcting to 2.6 on the morning of 09/11. Patient is not on chronic diuretic therapy but may have chronic magnesium loss due to PPI therapy. She was started on MagOx 800 mg daily prior to discharge to minimize recurrent electrolyte abnormality. No additional problems were encountered during the hospitalization and the patient was felt stable for discharge on 11/09. At this time she complains of some mild headache but indicated she has headaches frequently. She denied dyspnea or recurrent chest pain following admission. She's had no further tachyarrhythmias. On examination the patient is alert and talkative. Respirations are nonlabored with good airflow in cardiac rhythm is regular with normal S1 and S2. It was learned that multiple medications that she is standardly on were not included on her admission medication reconciliation and that several medications she was thought to be on had been previously discontinued. Subsequently the discharge list makes it appear that multiple changes were made that were not. The only medication modifications made during hospitalization were increasing dose of omeprazole from 20 mg daily to 20 mg twice a day and addition of Mag-Ox daily. Patient will follow-up with Dr. Reynolds and the [facility] in the immediate future. Discharge plans have been reviewed with Dr. Reynolds. Patient was advised to utilize mechanical soft diet with ground meats only until swallowing symptoms subside or esophageal dilatation undertaken should that become needed. Discharge Plan - Med Rec/Dispo Referrals/Follow Up: Juan Francisco Reynolds MD [Family Provider] - 1 Week (FOLLOW UP APPOINTMENT WITH DR. REYNOLDS ON 11/17/2016 AT 11:00 AM) Hern[facility] Instructions: Gastroesophageal Reflux Disease (GEN), Esophageal Stricture (GEN) Prescriptions: New Cholecalciferol [Vitamin D-3] 1,000 unit PO DAILY Duloxetine [Cymbalta] 30 mg PO DAILY cap Gabapentin [Neurontin] 300 mg PO 0900,1300 cap Hydrocodone/APAP 10/325 [[place] 10/325] 1 tab PO 5XD PRN PRN Reason: P Lidocaine Patch Removal [Lidoderm Patch Removal] 1 removal TOP 2100 patch Magnesium Oxide [Magox] 800 mg PO DAILY #60 PEG 3350 17gm PACKET [Miralax] 0.5 packet PO DAILY #30 packet Simvastatin [Zocor] 10 mg PO HS Trospium [Sanctura] 20 mg PO BID #60 tablet Acetaminophen [Tylenol] 500 - 1,000 mg PO BID PRN PRN Reason: Discomfort Gabapentin [Neurontin] 600 mg PO HS cap Lidocaine 5% Patch [Lidoderm] 1 patch TOP DAILY patch Omeprazole [Prilosec] 20 mg PO ACBID #60 cap Propylene Glycol/Peg 400 [Systane 0.3-0.4% Eye Drops] 15 ml OP BID #2 drops Continue Atenolol 100 mg PO DAILY #0 Lubiprostone [Amitiza] 24 mcg PO BID #0 Aspirin [Dom Chewable Aspirin] 81 mg PO DAILY #0 Discontinued Mirabegron [Myrbetriq] 25 mg PO DAILY #0 Melatonin/Pyridoxine [Melatonin 5 mg Tablet] 5 mg PO HS #0 Cholecalciferol (Vitamin D3) (Vitamin D3) 2,000 unit PO DAILY #0 Gabapentin 300 mg PO TID #0 hydroCHLOROthiazide [Hydrochlorothiazide] 1 cap PO WB 30 Days No Action Hydrocodone/Acetaminophen [Hydrocodon-Acetaminophn 10-325] 1 tab PO Q6H PRN # 0 PRN Reason: PAIN - Disposition 01 Discharged Home, Self-Care
[2016-11-09] MEDS ORDERED: LIDOCAINE PATCH REMOVAL TOP SCH (21:00)
[2016-11-09] MEDS ORDERED: SIMVASTATIN 10 MG TABLET PO SCH (22:00)
[2016-11-10] MEDS ORDERED: LIDOCAINE 5% PATCH TOP SCH (09:00)
[2016-11-10] MEDS ORDERED: MAGNESIUM OXIDE 400 MG TABLET PO SCH (12:00)
== END 2016-11-09 16:20 | disposition home or self-care (01) ==
LOC: MED 02:54 → ED 02:54 → MED 06:55
PROVIDERS: ADMIT Internal Medicine; ATTEND Internal Medicine